=== PATIENT | male | born 1960 | race Caucasian/White ===

== ENCOUNTER 2019-10-12 01:33 | Emergency (ER) | payer BC ==
[2019-10-12] MEDS ORDERED: Aspirin 81 MG Tab.Chew PO ONE (01:46)
--- NOTE | 2019-10-12 01:58 | EDM.PDOC ---
<Martha Bhardwaj - Last Filed: 10/12/19 02:03> ED HPI GENERAL MEDICAL PROBLEM - General Chief Complaint: Chest Pain Stated Complaint: CHEST PAIN Time Seen by Provider: 10/12/19 01:52 Source of Information: Reports: Patient History Limitations: Reports: No Limitations - History of Present Illness INITIAL COMMENTS - FREE TEXT/NARRATIVE: Patient presents to the ED by private vehicle with concerns of chest pain onset 2 hours ago. The patient reports sleeping in his chair and waking to a feeling of stabbing midline chest pain with inspiration. The patient describes the pain as constant with every inspiration. He also admits mild shortness of breath. He denies cough, wheezing, recent illness. The patient denies any cardiac history besides hypertension. He also takes a baby aspirin daily. His last aspirin was at 11 am 10/11/19. Onset: Sudden Onset Date: 10/12/19 Onset Time: 12:00 Duration: Constant Location: Reports: Chest Quality: Reports: Stabbing Severity: Moderate Improves with: Reports: None Worsens with: Reports: Movement (inspiration) Associated Symptoms: Reports: Shortness of Breath Middle Epigastric Pain Score (Numeric/FACES): 6 - Related Data Allergies Allergy/AdvReac Type Severity Reaction Status Date / Time No Known Allergies Allergy Verified 10/12/19 01:36 Home Meds: Home Meds metFORMIN HCl [Metformin HCl] 100 mg PO DAILY 11/03/17 [History] Empagliflozin [Jardiance] 25 mg PO DAILY 10/12/19 [History] ED ROS GENERAL - Review of Systems Review Of Systems: See Below Constitutional: Denies: Fever Respiratory: Reports: Shortness of Breath. Denies: Wheezing, Cough Cardiovascular: Reports: Chest Pain, Blood Pressure Problem (history of hypertension). Denies: Edema, Palpitations, Syncope GI/Abdominal: Denies: Abdominal Pain, Constipation, Diarrhea, Nausea, Vomiting Neurological: Denies: Dizziness, Headache, Numbness, Syncope, Tingling ED EXAM, GENERAL - Physical Exam Exam: See Below General Appearance: Alert, No Apparent Distress Head: Atraumatic, Normocephalic Respiratory/Chest: No Respiratory Distress, Lungs Clear, Normal Breath Sounds, No Accessory Muscle Use, Chest Non-Tender Cardiovascular: Normal Peripheral Pulses, Regular Rate, Rhythm, No Edema, No Murmur GI/Abdominal: Soft, Non-Tender, No Distention Neurological: Alert, Oriented, No Motor/Sensory Deficits Psychiatric: Normal Affect, Normal Mood Skin Exam: Warm, Dry, Intact EKG INTERPRETATION EKG Date: 10/12/19 Time: 01:37 Rhythm: NSR Rate (Beats/Min): 91 [place]: Normal P-Wave: Present QRS: Normal ST-T: Normal QT: Normal Comparison: NA - No Prior EKG Course - Vital Signs Last Recorded V/S: Last Vital Signs Temp 36.7 C 10/12/19 01:41 Pulse 76 10/12/19 05:30 Resp 16 10/12/19 05:30 BP 133/83 10/12/19 05:30 Pulse Ox 93 L 10/12/19 05:30 - Orders/Labs/Meds Orders: Active Orders 24 hr Category Date Time Status EKG Documentation Completion [RC] URGENT Care 10/12/19 01:35 Active EKG Documentation Completion [RC] URGENT Care 10/12/19 05:40 Active Chest 1V Frontal [CR] Urgent Exams 10/12/19 01:35 Taken Chest w Cont [CT] Urgent Exams 10/12/19 02:38 Taken Labs: Laboratory Tests 10/12/19 10/12/19 10/12/19 Range/Units 01:41 01:41 01:41 WBC 10.0 (5.0-10.0) 10^3/uL RBC 4.66 (4.6-6.2) 10^6/uL Hgb 13.9 L (14.0-18.0) g/dL Hct 40.9 (40.0-54.0) % MCV 87.8 (80-100) fL MCH 29.8 (27.0-34.0) pg MCHC 34.0 (33.0-35.0) g/dL Plt Count 309 D (150-450) 10^3/uL Neut % (Auto) 70.8 (42.2-75.2) % Lymph % (Auto) 16.8 L (20.5-50.1) % [place] % (Auto) 8.8 H (2-8) % Eos % (Auto) 3.1 H (1.0-3.0) % Baso % (Auto) 0.5 (0.0-1.0) % D-Dimer, Quantitative 983 H (0-400) ng/mL Sodium 138 (136-145) mmol/L Potassium 4.0 (3.5-5.1) mmol/L Chloride 101 (98-107) mmol/L Carbon Dioxide 31 (21-32) mmol/L Anion Gap 10.0 (7-13) mEq/L BUN 22 H (7-18) mg/dL Creatinine 0.87 (0.70-1.30) mg/dL Est Cr Clr Drug Dosing 97.87 mL/min Estimated GFR (MDRD) > 60 BUN/Creatinine Ratio 25.3 (No establ ref range) Glucose 140 H (74-99) mg/dL Calcium 8.8 (8.5-10.1) mg/dL Total Bilirubin 0.1 L (0.2-1.0) mg/dL AST 15 (15-37) U/L ALT 23 (16-63) U/L Alkaline Phosphatase 82 (46-116) U/L Troponin I 0.025 (0.000-0.056) ng/mL Total Protein 7.6 (6.4-8.2) g/dL Albumin 3.7 (3.4-5.0) g/dL Globulin 3.9 Albumin/Globulin Ratio 0.9 03/19/20 Range/Units 05:40 WBC (5.0-10.0) 10^3/uL RBC (4.6-6.2) 10^6/uL Hgb (14.0-18.0) g/dL Hct (40.0-54.0) % MCV (80-100) fL MCH (27.0-34.0) pg MCHC (33.0-35.0) g/dL Plt Count (150-450) 10^3/uL Neut % (Auto) (42.2-75.2) % Lymph % (Auto) (20.5-50.1) % [place] % (Auto) (2-8) % Eos % (Auto) (1.0-3.0) % Baso % (Auto) (0.0-1.0) % D-Dimer, Quantitative (0-400) ng/mL Sodium (136-145) mmol/L Potassium (3.5-5.1) mmol/L Chloride (98-107) mmol/L Carbon Dioxide (21-32) mmol/L Anion Gap (7-13) mEq/L BUN (7-18) mg/dL Creatinine (0.70-1.30) mg/dL Est Cr Clr Drug Dosing mL/min Estimated GFR (MDRD) BUN/Creatinine Ratio (No establ ref range) Glucose (74-99) mg/dL Calcium (8.5-10.1) mg/dL Total Bilirubin (0.2-1.0) mg/dL AST (15-37) U/L ALT (16-63) U/L Alkaline Phosphatase (46-116) U/L Troponin I 0.021 (0.000-0.056) ng/mL Total Protein (6.4-8.2) g/dL Albumin (3.4-5.0) g/dL Globulin Albumin/Globulin Ratio Meds: Medications Discontinued Medications Generic Name Dose Route Start Last Admin Trade Name Freq PRN Reason Stop Dose Admin Aspirin 324 mg 10/12/19 01:46 10/12/19 02:10 Aspirin PO 10/12/19 01:47 324 mg ONETIME ONE Administration Iopamidol 100 ml 10/12/19 02:38 10/12/19 03:10 [id number] (76%) IVPUSH 10/12/19 02:39 90 ml ONETIME ONE Administration Morphine Sulfate 2 mg 10/12/19 04:03 10/12/19 04:09 Morphine IVPUSH 10/12/19 04:04 2 mg ONETIME ONE Administration Departure - Departure Disposition: Home, Self-Care 01 Clinical Impression: Pleuritic chest pain, Nonspecific chest pain Instructions: Nonspecific Chest Pain, Adult, [id number], Chest Wall Pain, [id number] Forms: ED Department Discharge Care Plan Goals: The patient and his were advised of the examination, lab, EKG, x-ray, CT, repeat EKG and repeat lab results during the visit. The patient was encouraged to continue to monitor his symptoms. The patient may take Tylenol or ibuprofen for temporary symptom relief. If the patient has any additional symptoms or concerns, the patient should either return to the emergency department or visit his primary care facility. Sepsis Event Note - Evaluation Sepsis Screening Result: No Definite Risk - Focused Exam Vital Signs: Vital Signs Temp Pulse Resp BP Pulse Ox 10/12/19 05:30 76 16 133/83 93 L 10/12/19 04:59 81 150/82 H 95 03/19/20 01:41 36.7 C 88 22 H 185/110 H 96 Date Exam was Performed: 10/12/19 Time Exam was Performed: 02:03 - My Orders Last 24 Hours: My Active Orders 10/12/19 01:35 EKG Documentation Completion [RC] URGENT Chest 1V Frontal [CR] Urgent 10/12/19 02:38 Chest w Cont [CT] Urgent 10/12/19 05:40 EKG Documentation Completion [RC] URGENT - Assessment/Plan Last 24 Hours: My Active Orders 10/12/19 01:35 EKG Documentation Completion [RC] URGENT Chest 1V Frontal [CR] Urgent 10/12/19 02:38 Chest w Cont [CT] Urgent 10/12/19 05:40 EKG Documentation Completion [RC] URGENT <Juanjo Gallegos - Last Filed: 10/12/19 06:27> Course - Re-Assessments/Exams Free Text/Narrative Re-Assessment/Exam: 10/12/19 02:41 The patient was advised of the lab results including an elevated D-dimer. A CT with contrast of the patient's chest was ordered. 10/12/19 04:03 The patient was advised of the CT results. The patient reports he has right sided chest wall pain (rated at a 7/10) at the time of the examination. An order was placed for an IV dose of Morphine to be given. Departure - Departure Time of Disposition: 06:24 Condition: Fair Sepsis Event Note - Focused Exam Date Exam was Performed: 10/12/19 Time Exam was Performed: 06:24
[2019-10-12 02:14] LABS: CHLORIDE,CL 101 mmol/L (98-107); SODIUM,NA 138 mmol/L (136-145)
[2019-10-12] MEDS ORDERED: Iopamidol 755 Mg/ML 100 ML Bottle IVPUSH ONE (02:38)
[2019-10-12] MEDS ORDERED: Morphine 2 MG/ML Syringe IVPUSH ONE (04:03)
== END 2019-10-12 06:40 | disposition home or self-care (01) ==
LOC: DL.ED 01:33
DX: R07.2 Precordial pain (principal); Z79.84 Long term (current) use of oral hypoglycemic drugs
CPT/HCPCS: 36415; 71045; 71260; 80053; 84484; 85025; 85379; 93005; 96374; 99285-25; A9270-GY; J2270; Q9967